=== PATIENT | female | born 1975 | race Two or more races ===

== ENCOUNTER 2018-01-17 11:59 | Outpatient (CLI) | payer OTHER | END 2018-01-17 12:19 | disposition home or self-care (01) | LOC: OBS/DEL 11:59 | DX: O26.892 Other specified pregnancy related conditions, second trimester (principal); R10.30 Lower abdominal pain, unspecified; Z34.82 Encounter for supervision of other normal pregnancy, second trimester ==

== ENCOUNTER 2018-04-09 15:30 | Inpatient (IN) | payer OTHER ==
[~2018-04-09] VITALS: Ht 162.6 cm; Wt 4.5 kg
[2018-04-28] MEDS ORDERED: PREVACID15 MG PO (05:42)
[2018-04-28] MEDS ORDERED: PRENATAL 19 TA1 EACH PO (05:42)
[2018-04-28] MEDS ORDERED: INTEGRA CAPSUL1 EACH PO (05:43)
== END 2018-05-01 14:15 | DRG 766 ==
LOC: LDR 04-28 05:34 → O/R 04-28 10:38 → SURG-SUITE 04-28 12:09 → LDR 04-30 15:30 → SURG-SUITE 05-01 14:15
PROVIDERS: Obstetrics & Gynecology Maternal & Fetal Medicine
PROC: 4A1HXCZ Monitoring of Products of Conception, Cardiac Rate, External Approach (ICD-10-PCS; 2018-04-28)
PROC: 10D00Z1 Extraction of Products of Conception, Low, Open Approach (ICD-10-PCS; principal; 2018-04-28 11:45)
DX: O33.5XX0 Maternal care for disproportion due to unusually large fetus, not applicable or unspecified (principal); Z3A.39 39 weeks gestation of pregnancy; Z37.0 Single live birth; O09.523 Supervision of elderly multigravida, third trimester

== ENCOUNTER 2018-04-15 15:51 | Outpatient (CLI) | payer OTHER | END 2018-04-15 17:15 | disposition home or self-care (01) | LOC: NST 15:51 | DX: Z34.83 Encounter for supervision of other normal pregnancy, third trimester (principal) ==

== ENCOUNTER 2018-04-27 17:23 | Outpatient (CLI) | payer OTHER ==
[2018-04-28] MEDS ORDERED: PREVACID15 MG PO (05:42)
[2018-04-28] MEDS ORDERED: PRENATAL 19 TA1 EACH PO (05:42)
[2018-04-28] MEDS ORDERED: INTEGRA CAPSUL1 EACH PO (05:43)
== END 2018-04-27 19:20 | disposition home or self-care (01) ==
LOC: NST 17:23
DX: Z34.83 Encounter for supervision of other normal pregnancy, third trimester (principal)

== ENCOUNTER 2022-06-17 13:04 | Emergency (ER) | payer OTHER ==
[~2022-06-17] VITALS: Ht 162.6 cm; Wt 83.9 kg
[~2022-06-17 13:04] MED LIST: INTEGRA CAPSUL1 EACH PO; PRENATAL 19 TA1 EACH PO; PREVACID15 MG PO
[2022-06-17] MEDS ORDERED: KETO10TA2 PO (15:34)
== END 2022-06-17 15:52 | disposition home or self-care (01) ==
LOC: ER 13:04
DX: S89.92XA Unspecified injury of left lower leg, initial encounter (principal); W19.XXXA Unspecified fall, initial encounter; Y93.89 Activity, other specified; Y92.511 Restaurant or cafe as the place of occurrence of the external cause; Y99.9 Unspecified external cause status